=== PATIENT | female | born 1965 | race Caucasian/White ===

== ENCOUNTER → 2017-01-21 | Outpatient (CLI) | payer OTHER ==
[~2017-01-21] MED LIST: Ascorbic Acid PO; Fish Oil PO; MEFENAMIC ACID250 MG; METROGEL60 GM; MOVE FREE1 CAPSULE PO; ORACEA40 MG PO; ULTRAM50 MG PO
== END | disposition home or self-care (01) ==
LOC: CDC 15:34
DX: Z01.810 Encounter for preprocedural cardiovascular examination (principal)
CPT/HCPCS: 93000

== ENCOUNTER 2017-02-01 06:57 | Day surgery (SDC) | payer OTHER ==
[~2017-02-01] VITALS: Ht 172.7 cm; Wt 99.8 kg
[~2017-02-01 06:57] MED LIST changes: +EXCEDRIN MIGRA1 EAC3 PO; +FISH OIL300 MG PO; +FLONASE ALLERG9.9 ML BOTH NARES; +MOBIC15 MG PO; +NUCYNTA ER100 MG PO; +OMEPRAZOLE40 M1 PO; +PROZAC40 MG PO; +SOOLANTRA30 GM TP; +TENORMIN25 MG PO; +VITAMIN C500 M1 PO; +ZYRTEC10 M3 PO
[2017-02-01 08:00] VITALS: BP 113/75
[2017-02-01 14:15] VITALS: BP 89/52
[2017-02-01 16:00] VITALS: BP 102/61
[2017-02-01 19:55] VITALS: BP 117/73
[2017-02-01 23:33] VITALS: BP 90/51
[2017-02-02 03:17] VITALS: BP 99/60
[2017-02-02 07:11] LABS: HEMATOCRIT 28.6 % (36.0-46.0); MCH 22.7 PG (29.0-34.0); MCHC 29.7 G/DL (30.0-36.0); MCV 76.3 FL (83-99); MEAN PLAT.VOLUME 10.3 uM^3 (9.5-12.4); PLATELET COUNT 302 K/uL (156-360); RBC DIS.WIDTH-CV 16.2 % (11.8-14.6); RBC DIS.WIDTH-SD 44.8 % (39-53); RED BLOOD COUNT 3.75 M/uL (3.80-5.20); WHITE BLOOD COUNT 10.7 K/uL (4.1-10.2)
[2017-02-02 08:00] VITALS: BP 109/68
[2017-02-02 11:05] VITALS: BP 111/69
[2017-02-02] MEDS ORDERED: IBUPROFEN800 MG PO (13:56)
[2017-02-02] MEDS ORDERED: ENDOCET 5-3251 EACH PO (13:56)
[2017-02-02] MEDS ORDERED: FERROUS SULFAT325 MG PO (13:56)
[2017-02-02] MEDS ORDERED: DOCUSATE SODIU100 MG PO (13:56)
== END 2017-02-02 15:18 | disposition home or self-care (01) ==
LOC: SDC → 2SOUTH 12:21 → 2EAST 12:21 → SDC 15:13 → 2EAST 02-02 15:18
PROVIDERS: Obstetrics & Gynecology
DX: N81.2 Incomplete uterovaginal prolapse (principal); D25.9 Leiomyoma of uterus, unspecified; N39.3 Stress incontinence (female) (male); N87.9 Dysplasia of cervix uteri, unspecified; N72 Inflammatory disease of cervix uteri; N80.0 Endometriosis of uterus; F41.9 Anxiety disorder, unspecified; K21.9 Gastro-esophageal reflux disease without esophagitis; E03.9 Hypothyroidism, unspecified; Z88.0 Allergy status to penicillin; Z83.3 Family history of diabetes mellitus
CPT/HCPCS: 85027; 88307; C1771; G0378; J0330; J1100; J1170; J1580; J2250; J2405; J2710; J2765; J3010; J7050; J7120